=== PATIENT | male | born 1940 | race Caucasian/White ===

== ENCOUNTER 2017-09-02 13:46 | Inpatient (IN) | payer OTHER, MEDICARE, BC ==
[~2017-09-02] VITALS: Ht 177.8 cm; Wt 89.3 kg
[2017-09-02] VITALS (9 sets, daily range): BP systolic 124–169; BP diastolic 62–87; PULSE 72–88; RESP 15–21; TEMP 97.3–98.1; O2SAT 94–99
[2017-09-02] MEDS ORDERED: IOHEXOL 350 MG/ML 10 ML VIAL (for RAD DIAG) IVCONTRAST ONE (13:47)
[2017-09-02] MEDS ORDERED: MORPHINE SULFATE 4 MG/ML INJ ONE (13:51)
[2017-09-02 14:14] LABS: BASOPHIL # 0.1 TH/MM3 (0-0.2); BASOPHIL % 0.4 % (0.0-2.0); EOSINOPHIL # 0.6 TH/MM3 (0-0.4); EOSINOPHIL % 4.4 % (0.0-4.0); HEMATOCRIT 42.5 % (39.0-51.0); HEMOGLOBIN 14.8 GM/DL (13.0-17.0); LYMPH % 15.7 % (9.0-44.0); MEAN CELL VOLUME 83.9 FL (80.0-100.0); MEAN CORPUSCULAR HEMOGLOBIN 29.3 PG (27.0-34.0); MEAN CORPUSCULAR HGB CONC 34.9 % (32.0-36.0); MEAN PLATELET VOLUME 8.1 FL (7.0-11.0); MONO % 7.7 % (0.0-8.0); NEUT % 71.8 % (16.0-70.0); PLATELET COUNT 244 TH/MM3 (150-450); RED BLOOD COUNT 5.07 MIL/MM3 (4.50-5.90); RED CELL DISTRIBUTION WIDTH 13.6 % (11.6-17.2); WHITE BLOOD COUNT 12.6 TH/MM3 (4.0-11.0)
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
[2017-09-02 14:21] LABS: INTERNATIONAL NORMALIZED RATIO 1.2 RATIO; PROTHROMBIN TIME - PATIENT 11.9 SEC (9.8-11.6)
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
[2017-09-02] MEDS ORDERED: METF500T PO (16:08)
[2017-09-02] MEDS ORDERED: NOVOLOGP2 SQ (16:08)
[2017-09-02] MEDS ORDERED: GLIM4TAB PO (16:12)
[2017-09-02] MEDS ORDERED: AMLO10CA PO (16:12)
[2017-09-02] MEDS ORDERED: HYDR25TA5 PO (16:12)
[2017-09-02] MEDS ORDERED: MAGNESIUM HYDROXIDE SUSP 30 ML CUP PO PRN (16:30)
[2017-09-02] MEDS ORDERED: ENALAPRILAT 1.25 MG/ML VIAL IV PUSH PRN (16:30)
[2017-09-02] MEDS ORDERED: MORPHINE SULFATE 4 MG/ML INJ IV PUSH PRN (16:30)
[2017-09-02] MEDS ORDERED: MORPHINE SULFATE 2 MG/ML SYRINGE IV PUSH PRN (16:30)
[2017-09-02] MEDS ORDERED: NURSING INFORMATION XX SCH (16:30)
[2017-09-02] MEDS ORDERED: CHLORHEXIDINE GLUCONATE 2 % 1 PACK (2 CLOTHS) TOP PRN (16:30)
[2017-09-02] MEDS ORDERED: SODIUM CHLORIDE 0.9% FLUSH 10 ML FLUSH IV FLUSH PRN (16:30)
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
[2017-09-02] MEDS: SODIUM CHLOR 0.9% 1000 ML INJ 1,000 ML IV SCH (17:24)
[2017-09-02] MEDS: PANTOPRAZOLE SODIUM 40 MG VIAL IVP SCH (17:25)
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
[2017-09-02] MEDS ORDERED: DEXTROSE 50% IN WATER 50 ML VIAL(D50) IV PUSH PRN (18:15)
[2017-09-02] MEDS ORDERED: GLUCAGON 1 MG/ML VIAL OTHER PRN (18:15)
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
[2017-09-02] MEDS ORDERED: MORPHINE SULFATE 4 MG/ML INJ IV PRN (20:45)
[2017-09-02] MEDS: DOCUSATE SODIUM 100 MG CAP PO SCH (21:00)
[2017-09-02] MEDS: oxyCODONE/ACETAMINOPHEN 5 MG/325 MG TAB PO PRN (21:12)
[2017-09-02] MEDS: levETIRAcetam INJ 500 MG in SODIUM CHLORIDE 0.9% INJ 100 ML IV SCH (21:13)
[2017-09-02] MEDS: INSULIN NovoLIN REGULAR SUPPLEMENTAL SCALE SQ SCH (21:30)
[2017-09-02] MEDS: MORPHINE SULFATE 4 MG/ML INJ IV PUSH PRN (21:31)
[2017-09-03] VITALS (11 sets, daily range): BP systolic 99–151; BP diastolic 56–79; PULSE 81–94; RESP 12–16; TEMP 97.6–98.8; O2SAT 94–98
[2017-09-03] MEDS: SODIUM CHLOR 0.9% 1000 ML INJ 1,000 ML IV SCH ×3 (02:16→22:21)
[2017-09-03] MEDS: CHLORHEXIDINE GLUCONATE 2 % 1 PACK (2 CLOTHS) TOP SCH (04:00)
[2017-09-03] MEDS: MORPHINE SULFATE 4 MG/ML INJ IV PUSH PRN ×2 (05:06→21:47)
[2017-09-03] MEDS: oxyCODONE/ACETAMINOPHEN 5 MG/325 MG TAB PO PRN ×2 (05:06→20:07)
[2017-09-03 05:33] LABS: AUTOMATED NEUTROPHIL # 5.5 TH/MM3 (1.8-7.7); BASOPHIL # 0.1 TH/MM3 (0-0.2); BASOPHIL % 0.6 % (0.0-2.0); EOSINOPHIL # 0.2 TH/MM3 (0-0.4); HEMATOCRIT 37.4 % (39.0-51.0); HEMOGLOBIN 12.8 GM/DL (13.0-17.0); LYMPH % 17.1 % (9.0-44.0); LYMPHOCYTE # 1.4 TH/MM3 (1.0-4.8); MEAN CELL VOLUME 85.2 FL (80.0-100.0); MEAN CORPUSCULAR HEMOGLOBIN 29.1 PG (27.0-34.0); MEAN CORPUSCULAR HGB CONC 34.2 % (32.0-36.0); MEAN PLATELET VOLUME 8.1 FL (7.0-11.0); MONOCYTE # 1.1 TH/MM3 (0-0.9); NEUT % 66.3 % (16.0-70.0); PLATELET COUNT 188 TH/MM3 (150-450); RED BLOOD COUNT 4.39 MIL/MM3 (4.50-5.90); RED CELL DISTRIBUTION WIDTH 13.9 % (11.6-17.2); WHITE BLOOD COUNT 8.3 TH/MM3 (4.0-11.0)
[2017-09-03 06:00] LABS: ALBUMIN 3.1 GM/DL (3.4-5.0); ALT (GPT) 87 U/L (12-78); AST (GOT) 122 U/L (15-37); BICARBONATE 26.6 MEQ/L (21.0-32.0); BLOOD UREA NITROGEN 26 MG/DL (7-18); CALCIUM 8.1 MG/DL (8.5-10.1); CHLORIDE 104 MEQ/L (98-107); CREATININE 1.39 MG/DL (0.60-1.30); GLOMERULAR FILTRATION RATE 44 ML/MIN (>89); GLUCOSE,RANDOM 141 MG/DL (74-106); SODIUM (NA) 141 MEQ/L (136-145)
[2017-09-03 06:02] LABS: ALKALINE PHOSPHATASE 54 U/L (45-117); TOTAL BILIRUBIN ADULT 0.5 MG/DL (0.2-1.0); TOTAL PROTEIN 6.1 GM/DL (6.4-8.2)
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
[2017-09-03] MEDS: INSULIN NovoLIN REGULAR SUPPLEMENTAL SCALE SQ SCH ×4 (07:24→21:20)
[2017-09-03] MEDS: GENTAMICIN SULFATE 80 MG/2 ML VIAL ONE ×2 (07:27→09:00)
[2017-09-03] MEDS ORDERED: SODIUM CHLOR 0.9% 250 ML INJ 250 ML ONE (07:27)
[2017-09-03] MEDS: VANCOMYCIN HCL 1000 MG VIAL ONE ×2 (07:27→07:59)
[2017-09-03] MEDS: ceFAZolin INJ 1,000 MG VIAL ONE ×2 (07:27→08:18)
[2017-09-03] MEDS ORDERED: BUPIVACAINE/EPINEPHRINE 0.5% PF 10 ML VIAL ONE (07:27)
[2017-09-03] MEDS ORDERED: FAMOTIDINE 20 MG/2 ML VIAL ONE (07:44)
[2017-09-03] MEDS ORDERED: NON-FORMULARY DRUG (Amlodipine-Benazepril 1 CAP) PO SCH (09:00)
[2017-09-03] MEDS: DOCUSATE SODIUM 100 MG CAP PO SCH ×2 (09:00→20:07)
--- NOTE | 2017-09-03 09:27 | PD.OP ---
cc: Braden Nathan MD Operative Report Date of Surgery: September 03, 2017 Preoperative Diagnosis: Right radius and ulna shaft fractures Postoperative Diagnosis: Procedure: Open reduction internal fixation right radius and ulna Anesthesia: General Surgeon: Braden Nathan Pelt Shearer(s): LIZ Terry PA-C The surgical procedure was assisted by my physician press assistant and feeder. My P.A. presence was necessary throughout this case for the manipulation and positioning of the surgical extremity. My P.A. was assisting me throughout the duration of this procedure. The skill set of a physician press assistant and feeder was medically necessary to complete this procedure. During the surgical case the surgical physician assistant was working at the back table and the physician press assistant and feeder was directly assisting me. Operation and Findings: Implants used: ITS Patient was seen and examined preoperatively. Patient was found to have displaced right radius and ulna shaft fractures. Informed consent was obtained and operative site was marked. Patient was brought to operating room and given IV sedation and general anesthesia. Timeout procedure was performed. Operative extremity was prepped and draped with alcohol followed by Hibiclens and draped in usual sterile fashion. IV antibiotics were administered prior to incision. Procedure began with a 5 inch incision over the subcutaneous border of the ulna. Fascia was elevated off of the bone. Fracture site was visualized. Fracture tenaculums were used to reduce fracture. Fracture keyed into anatomic alignment. A plate was placed across the fracture. Plate was provisionally held to bone with K wires. 3.5 cortical screws were used to compress plate to bone. Multiple screws were placed in each side of fracture. K wires were removed. Fluoroscopy confirmed excellent alignment of fracture with well- placed hardware. Incision was now closed with #1 Vicryl, 3-0 Vicryl, and melba. Next attention was turned to the radius. A 5 inch incision was made over the volar aspect of the forearm. A standard volar approach was utilized. The interval between the radial artery and superficial radial nerve was identified. Neurovascular structures were protected. Soft tissue was elevated off the bone. Fracture site was visualized. Fracture fragments were carefully reduced. Each fracture fragment keyed in anatomic alignment. K wires were used to hold provisional fixation. A plate was contoured to fit the radius. Plate was provisionally held with K wires. 3.5 cortical screws were used to compress plate to bone. Multiple screws were placed in each side of fracture. K wires were removed. Final fluoroscopy revealed excellent of fracture with well-placed hardware. Sterile dressings were applied with Xeroform 4 x 4 soft roll and Ketan wrap. Patient was awakened and transferred to recovery room in stable condition. Forearm compartments were soft and compressible. Braden Nathan MD September 03, 2017 09:27
[2017-09-03] MEDS ORDERED: MAGN30S PO (10:00)
[2017-09-03] MEDS ORDERED: DOCU1CAP39 PO (10:00)
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
[2017-09-03] MEDS ORDERED: DO NOT ADM ANY ANTICOAGULANT DRUGS PRN (11:00)
[2017-09-03] MEDS: LISINOPRIL 20 MG TAB PO SCH (11:50)
[2017-09-03] MEDS: levETIRAcetam INJ 500 MG in SODIUM CHLORIDE 0.9% INJ 100 ML IV SCH ×2 (11:50→20:08)
[2017-09-03] MEDS ORDERED: DEXAMETHASONE SOD PHOS 4 MG/ML VIAL IV ONE (12:00)
[2017-09-03] MEDS ORDERED: SUCCINYLCHOLINE CHLORIDE 100 MG/5 ML SYRINGE IV PUSH ONE (12:00)
[2017-09-03] MEDS ORDERED: ROCURONIUM INJ 50 MG/5 ML SYRINGE IV PUSH ONE (12:00)
[2017-09-03] MEDS ORDERED: LIDOCAINE HCL 1% PF 5 ML SYRINGE OTHER ONE (12:00)
[2017-09-03] MEDS ORDERED: PROPOFOL 200 MG/20 ML AMP IV ONE (12:00)
[2017-09-03] MEDS ORDERED: ONDANSETRON HCL 4 MG/2 ML VIAL IV ONE (12:00)
[2017-09-03] MEDS ORDERED: PHENYLEPH/NS 1000 MCG/10 ML SYR IV ONE (12:00)
[2017-09-03] MEDS ORDERED: ePHEDrine/NS 25 MG/5 ML SYRINGE IV ONE (12:00)
--- NOTE | 2017-09-03 12:07 | RADRPT ---
EXAM DATE: 09/03/2017 11:19 AM EDT AGE/SEX: 77 years / Male INDICATIONS: ORIF right forearm fracture. CLINICAL DATA: This is the patient's subsequent encounter. Patient reports that signs and symptoms h ave been present for 2 days and indicates a pain score of Nonresponsive. MEDICAL/SURGICAL HISTORY: . Unobtainable. . Unobtainable. COMPARISON: No prior exams available for comparison. FINDINGS: Fixation across fractures of the distal shaft of the radius and ulna. Normal alignment. No complications. CONCLUSION: Fixation radius and ulnar shaft fractures. Electronically signed by: Mihir Malloy MD 09/03/2017 12:05 PM EDT
[2017-09-03] MEDS: ONDANSETRON ODT 4 MG TAB PO PRN ×2 (13:58→21:47)
--- NOTE | 2017-09-03 16:00 | EKG ---
Date Performed: 09/02/2017 Time Performed: 22:33:27 PTAGE: 89 years EKG: Sinus rhythm NORMAL ECG INTERPRETATION BASED ON A DEFAULT AGE OF 42 YEARS NO PREVIOUS TRACING DOCTOR: Birdie Mathews Interpretating Date/Time 09/03/2017 15:59:21
[2017-09-03] MEDS: PANTOPRAZOLE SODIUM 40 MG VIAL IVP SCH (17:52)
[2017-09-04] VITALS (13 sets, daily range): BP systolic 117–153; BP diastolic 63–83; PULSE 78–94; RESP 12–18; TEMP 97.5–99.7; O2SAT 93–98
[2017-09-04] MEDS: CHLORHEXIDINE GLUCONATE 2 % 1 PACK (2 CLOTHS) TOP SCH (04:00)
[2017-09-04] MEDS: levETIRAcetam 500 MG TAB PO SCH ×2 (08:00→20:12)
[2017-09-04] MEDS: DOCUSATE SODIUM 50 MG/SENNA 8.6 MG TAB PO SCH ×2 (08:00→20:12)
[2017-09-04] MEDS: LISINOPRIL 20 MG TAB PO SCH (08:01)
[2017-09-04] MEDS: INSULIN NovoLIN REGULAR SUPPLEMENTAL SCALE SQ SCH ×4 (08:26→21:20)
[2017-09-04] MEDS ORDERED: SODIUM CHLORID 0.9% 500 ML INJ 500 ML IV ONE (10:00)
[2017-09-04] MEDS: oxyCODONE/ACETAMINOPHEN 5 MG/325 MG TAB PO PRN ×2 (12:10→20:12)
[2017-09-04] MEDS: MORPHINE SULFATE 4 MG/ML INJ IV PUSH PRN ×2 (12:49→21:38)
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
[2017-09-04] MEDS ORDERED: IOHEXOL 350 MG/ML 10 ML VIAL (for RAD DIAG) IVCONTRAST ONE (18:12)
--- NOTE | 2017-09-04 18:40 | RADRPT ---
EXAM DATE: 09/04/2017 6:30 PM EDT AGE/SEX: 77 years / Male INDICATIONS: C-2 fracture. CLINICAL DATA: This is the patient's initial encounter. Patient reports that signs and symptoms have been present for 2 days and indicates a pain score of 7/10. MEDICAL/SURGICAL HISTORY: Hypertension. None. RADIATION DOSE: 12.44 CTDI (mGy) COMPARISON: No prior [place] exams available for comparison. TECHNIQUE: Volumetric scanning was performed using a multirow detector CT scanner during bolus infus ion of 75 ml Omnipaque 350 (iohexol) nonionic water-soluble contrast as a single exam dose. The da ta was postprocessed with a variety of visualization algorithms including full-volume maximum intensi ty projection, multiplanar sliding thin-slab reformation, curved-planar reformation, and surface-rend ering techniques. Using automated exposure control and adjustment of the mA and/or kV according to p atient size, radiation dose was kept as low as reasonably achievable to obtain optimal diagnostic melissa lity images. FINDINGS: Redemonstration of a nondisplaced fracture through the right lateral mass of C2. Aortic Arch: There is a three-vessel origin of the great vessels from the aorta. No evidence of ost ial narrowing mild stenosis of the mid left subclavian artery secondary to calcified plaque. Right Carotid: The common carotid artery is intact. The carotid bulb has a normal configuration wit hout ulceration or narrowing. Minimal eccentric calcified plaque at the origin of the internal caroti d artery with resultant less than 10% stenosis. Internal carotid artery is otherwise patent to the sk ull base. The external carotid artery is intact. Left Carotid: The common carotid artery is intact. The carotid bulb has a normal configuration with out ulceration or narrowing. Minimal mixed plaque at the origin of the internal carotid artery with r esultant less than 10% stenosis. Internal carotid artery is otherwise patent to the skull base. The external carotid artery is intact. Vertebrals: The vertebral arteries have a symmetric diameter. The distal right vertebral artery thro ugh the level of the fracture appears unremarkable without evidence for dissection or occlusion. Mild to moderate apparent extrinsic stenosis of the right vertebral artery at C5 level due to significant bony spurring.. General Findings: Lung apices are clear. Thyroid is unremarkable by CT. No significant adenopathy. Ch ronic appearing left sphenoid sinus opacification. Degenerative spondylosis of the cervical spine. Elevated flow velocities and ICA/CCA ratios have been found to correlate with increased degrees of ve ssel stenosis, calculated as percentage of diameter relative to a normal segment of distal ICA/CCA. CONCLUSION: 1. Redemonstration of a nondisplaced fracture through the right lateral mass of C2 without evidence for traumatic right vertebral artery dissection or occlusion. 2. Suspect mild to moderate extrinsic stenosis of the right vertebral artery at C5 level due to sign ificant bony spurring. 3. Minimal eccentric plaque at the origin of the internal carotid arteries bilaterally with resultan t less than 10% stenosis. Electronically signed by: Shelton Miguel MD 09/04/2017 6:39 PM EDT
[2017-09-04] MEDS: ONDANSETRON ODT 4 MG TAB PO PRN (21:38)
[2017-09-05] VITALS: BP 139/68; PULSE 88; RESP 13; TEMP 97.8; O2SAT 96
--- NOTE | 2017-09-05 00:21 | RADRPT ---
EXAM DATE: 09/04/2017 6:06 PM EDT AGE/SEX: 77 years / Male INDICATIONS: Follow up bleed. CLINICAL DATA: This is the patient's subsequent encounter. Patient reports that signs and symptoms h ave been present for 2 days and indicates a pain score of 6/10. MEDICAL/SURGICAL HISTORY: Hypertension. None. RADIATION DOSE: 56.35 CTDI (mGy) COMPARISON: [facility] [place], CT BRAIN W/O CONTRAST, 09/02/2017. . TECHNIQUE: CT of the head without contrast. Using automated exposure control and adjustment of the mA and/or kV according to patient size, radiation dose was kept as low as reasonably achievable to ob tain optimal diagnostic quality images. FINDINGS: Cerebrum: The ventricles are normal for age. No evidence of midline shift, mass lesion, or acute in farction. The previously noted small left extra-axial hemorrhage along the left lateral temporal lobe has decreased in size with 2 tiny punctate areas of high density hemorrhage now noted in this region . The larger measures up to approximately 7 mm and the smaller measures approximately 4 mm. There is no new hemorrhage. No extraaxial fluid collections are seen. Posterior Fossa: The cerebellum and brainstem are intact. The 4th ventricle is midline. The cerebe llopontine angle is unremarkable. Extracranial: The visualized portion of the orbits is intact. Skull: The calvaria is intact. No evidence of skull fracture. CONCLUSION: 1. Interval decrease in the size high density left extra-axial hemorrhagic collection with 2 small p unctate areas now noted. 2. No new hemorrhage or mass effect. Electronically signed by: Al Mandujano MD 09/05/2017 12:20 AM EDT
[2017-09-05 02:00] VITALS: PULSE 82
[2017-09-05 04:00] VITALS: BP 152/79; PULSE 80; RESP 12; TEMP 97.9; O2SAT 95
[2017-09-05] MEDS: CHLORHEXIDINE GLUCONATE 2 % 1 PACK (2 CLOTHS) TOP SCH (04:00)
[2017-09-05 04:51] LABS: CALCIUM 8.2 MG/DL (8.5-10.1); CREATININE 1.03 MG/DL (0.60-1.30)
[2017-09-05] MEDS: oxyCODONE/ACETAMINOPHEN 5 MG/325 MG TAB PO PRN ×2 (05:05→10:39)
[2017-09-05 05:42] LABS: AUTOMATED NEUTROPHIL # 4.7 TH/MM3 (1.8-7.7); BASOPHIL # 0.1 TH/MM3 (0-0.2); BASOPHIL % 0.8 % (0.0-2.0); EOSINOPHIL # 0.3 TH/MM3 (0-0.4); EOSINOPHIL % 3.4 % (0.0-4.0); HEMOGLOBIN 12.4 GM/DL (13.0-17.0); LYMPH % 20.5 % (9.0-44.0); LYMPHOCYTE # 1.5 TH/MM3 (1.0-4.8); MEAN CELL VOLUME 87.3 FL (80.0-100.0); MEAN CORPUSCULAR HEMOGLOBIN 29.3 PG (27.0-34.0); MEAN CORPUSCULAR HGB CONC 33.6 % (32.0-36.0); MEAN PLATELET VOLUME 8.2 FL (7.0-11.0); MONO % 10.5 % (0.0-8.0); MONOCYTE # 0.8 TH/MM3 (0-0.9); NEUT % 64.8 % (16.0-70.0); PLATELET COUNT 178 TH/MM3 (150-450); RED BLOOD COUNT 4.24 MIL/MM3 (4.50-5.90); RED CELL DISTRIBUTION WIDTH 13.8 % (11.6-17.2); WHITE BLOOD COUNT 7.3 TH/MM3 (4.0-11.0)
[2017-09-05 06:00] VITALS: PULSE 84
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
[2017-09-05] MEDS ORDERED: CANE/ALUMINUM/A1 MIS (06:50)
[2017-09-05] MEDS: INSULIN NovoLIN REGULAR SUPPLEMENTAL SCALE SQ SCH ×2 (08:00→12:00)
[2017-09-05] MEDS: DOCUSATE SODIUM 50 MG/SENNA 8.6 MG TAB PO SCH (08:37)
[2017-09-05] MEDS: LISINOPRIL 20 MG TAB PO SCH (08:43)
[2017-09-05] MEDS: MORPHINE SULFATE 4 MG/ML INJ IV PUSH PRN (08:43)
[2017-09-05] MEDS: levETIRAcetam 500 MG TAB PO SCH (08:44)
[2017-09-05] MEDS ORDERED: oxyCODONE/ACETAMINOPHEN 10 MG/325 MG TAB PO PRN (09:45)
[2017-09-05] MEDS ORDERED: LIDOCAINE HCL 5% PATCH TD SCH (09:45)
[2017-09-05 12:00] VITALS: BP 130/78; PULSE 78; RESP 20; TEMP 98; O2SAT 99
[2017-09-05] MEDS ORDERED: METH500T3 PO (12:03)
[2017-09-05] MEDS ORDERED: OXYC1TAB36 PO (12:03)
[2017-09-05] MEDS ORDERED: LISI-515 PO (12:03)
[2017-09-05] MEDS ORDERED: OXYC1TAB63 PO (12:03)
[2017-09-05] MEDS ORDERED: LIDO1ADH4 TD (12:03)
[2017-09-05 13:00] VITALS: PULSE 80
[2017-09-05] MEDS ORDERED: METHOCARBAMOL 500 MG TAB PO SCH (14:00)
[2017-09-05] MEDS ORDERED: REMOVE OLD LIDOCAINE PATCH T-DERMAL SCH (21:00)
[2017-09-05] MEDS ORDERED: REMOVE OLD PATCH T-DERMAL SCH (21:00)
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
== END 2017-09-05 13:28 | DRG 958 ==
LOC: NEPI 13:46 → EDBD 14:30 → NEDA 14:30 → N03A 16:47
PROVIDERS: ADMIT Surgery; ATTEND Surgery
PROC: 0PSK04Z Reposition Right Ulna with Internal Fixation Device, Open Approach (ICD-10-PCS; 2017-09-03)
PROC: 0PSH04Z Reposition Right Radius with Internal Fixation Device, Open Approach (ICD-10-PCS; principal; 2017-09-03 08:13)
DX: S06.5X0A Traumatic subdural hemorrhage without loss of consciousness, initial encounter (principal); S12.191A Other nondisplaced fracture of second cervical vertebra, initial encounter for closed fracture; S27.321A Contusion of lung, unilateral, initial encounter; E11.9 Type 2 diabetes mellitus without complications; S52.301A Unspecified fracture of shaft of right radius, initial encounter for closed fracture; S22.32XA Fracture of one rib, left side, initial encounter for closed fracture; I10 Essential (primary) hypertension; S52.201A Unspecified fracture of shaft of right ulna, initial encounter for closed fracture; Z79.4 Long term (current) use of insulin; V49.40XA Driver injured in collision with unspecified motor vehicles in traffic accident, initial encounter; Y92.410 Unspecified street and highway as the place of occurrence of the external cause; Z87.891 Personal history of nicotine dependence
CPT/HCPCS: 29125; 70450; 70498; 71045; 71260; 72125; 72132; 72170; 73090; 74177; 80048; 80053; 80307; 82948; 85025; 85610; 85730; 86850; 86900; 86901; 87641; 93005; 94150; 96374; 99291; C1713; C9113; G0390; J0330; J0690; J1100; J1580; J1953; J2270; J2370; J2405; J3370; J7030; J7040; J7050; L0150; L0172; Q9967